=== PATIENT | male | born 1975 | race Caucasian/White ===

== ENCOUNTER 2018-10-10 10:34 | Emergency (ER) | payer SELFPAY ==
--- NOTE | 2018-10-10 10:38 | ER Report ---
History and Physical Time Seen By MD: 10:34 HPI/STEPH 43-year-old male who presents with multiple medical complaints. He presents with his sister as his attending ambulatory care. Patient recently moved from [place] several months ago and has not established medical care here in [place]. He states that he previously had some issues with his heart. He is unsure what this was. He is not currently on any medications for this. He states his last 6 months been having central chest pressure with some associated shortness of breath on exertion. This has slightly been worsening over the last several months. He is currently chest pain-free. He has had no fevers or chills. He does not recall ever having a stress test. Additionally, the patient complains of some intermittent black stools over the last several months. He denies any syncope, NSAID usage. He denies any hematemesis. Denies any illicit drug use. Occasional alcohol use. Finally, the patient also complains of a migraine headache which he states he gets on a daily basis; he states he has been worked up for these in the past including imaging and that the headache it is currently experiencing does not differ in any way to his migraines that he has had for the last year or so. He denies any fevers or chills, blurry vision, or neck stiffness. A complete review of systems was performed and is otherwise negative except as noted in the history of present illness. Remainder of the 14 system rev: Yes Allergies: Coded Allergies: Penicillins (Verified Allergy, Unknown, ANAPHYLAXIS, 10/10/18) nitroglycerin (Verified Allergy, Unknown, ANAPHYLAXIS, 10/10/18) STOPS MY HEART Home Meds No Active Prescriptions or Reported Meds Reviewed Nurses Notes: Yes Old Medical Records Reviewed: Yes Constitutional Vital Sign - Last 24 Hours 10/10/18 10/10/18 10/10/18 10/10/18 10:34 10:40 11:04 11:07 Temp 98.6 Pulse 89 90 88 Resp 14 B/P (MAP) 166/124 155/111 (126) Pulse Ox 92 94 O2 Delivery Room Air 10/10/18 10/10/18 10/10/18 10/10/18 11:12 11:30 11:42 12:00 Pulse 82 75 Resp 26 25 B/P (MAP) 143/105 (118) 147/118 (128) Pulse Ox 92 93 Physical Exam General Appearance: The patient is alert, has no immediate need for airway protection and no signs of toxicity. Eyes: Pupils equal and round no pallor or injection. ENT, Mouth: Mucous membranes are moist. Respiratory: There are no retractions, lungs are clear to auscultation. Cardiovascular: Regular rate and rhythm. Gastrointestinal: Abdomen is soft and non tender, no masses, bowel sounds normal. Rectal: No melena; brown stool Neurological: No focal deficits Skin: Warm and dry, no rashes. Musculoskeletal: No peripheral edema Medical Decision Making Data Points Result Diagram: 10/10/18 1045 10/10/18 1045 Laboratory Hematology Test 10/10/18 10:45 White Blood Count 8.3 k/uL (4.5-11.0) Red Blood Count 5.11 M/uL (4.00-5.60) Hemoglobin 16.7 g/dL (14.0-18.0) Hematocrit 47.5 % (42.0-52.0) Mean Corpuscular Volume 93.0 fL (80.0-96.0) Mean Corpuscular Hemoglobin 32.7 pg (26.0-33.0) Mean Corpuscular Hemoglobin Concent 35.1 g/dL (32.0-36.0) Red Cell Distribution Width 13.5 % (11.5-14.5) Platelet Count 193 K/uL (150-450) Mean Platelet Volume 8.5 fL (7.2-11.1) Neutrophils (%) (Auto) 70.5 % (39.4-72.5) Lymphocytes (%) (Auto) 22.6 % (17.6-49.6) Monocytes (%) (Auto) 4.5 % (4.1-12.4) Eosinophils (%) (Auto) 1.1 % (0.4-6.7) Basophils (%) (Auto) 1.3 % (0.3-1.4) Nucleated RBC Relative Count (auto) 0.0 /100WBC Neutrophils # (Auto) 5.8 K/uL (2.0-7.4) Lymphocytes # (Auto) 1.9 K/uL (1.3-3.6) Monocytes # (Auto) 0.4 K/uL (0.3-1.0) Eosinophils # (Auto) 0.1 K/uL (0.0-0.5) Basophils # (Auto) 0.1 K/uL (0.0-0.1) Nucleated RBC Absolute Count (auto) 0.00 K/uL Chemistry Test 10/10/18 10:45 Sodium Level 139 mmol/L (137-145) Potassium Level 3.9 mmol/L (3.5-5.0) Chloride Level 104 mmol/L (98-107) Carbon Dioxide Level 24 mmol/L (22-30) Blood Urea Nitrogen 13 mg/dl (9-21) Creatinine 1.20 mg/dl (0.66-1.25) Glomerular Filtration Rate Calc > 60.0 Random Glucose 95 mg/dl (75-110) Calcium Level 9.5 mg/dl (8.4-10.2) Total Bilirubin 1.0 mg/dl (0.2-1.3) Aspartate Amino Transf (AST/SGOT) 27 U/L (0-35) Alanine Aminotransferase (ALT/SGPT) 32 U/L (0-56) Alkaline Phosphatase 97 U/L (0-126) Troponin I < 0.012 ng/ml B-Type Natriuretic Peptide 13 pg/ml (0-100) Total Protein 7.8 g/dl (6.3-8.2) Albumin 4.9 g/dl (3.5-5.0) EKG/Imaging EKG Interpretation Normal sinus rhythm with a ventricular rate of 83. No significant ST or T-wave abnormalities. Mild right atrial enlargement by P wave criteria in lead 2. Monitor Interpretation: Normal Sinus Rhythm ED Course/Re-evaluation ED Course 43-year-old male who presents with several medical complaints including migraine headache, intermittent chest pain with associated shortness of breath, and black stools. Patient is medically stable although mildly hypertensive. Satting well on room air, afebrile. Physical exam is largely unremarkable. Differential includes but is not limited to stable angina, ACS, PE, upper GI bleed, migraine headache, intracranial pathology. With regards to the patient's intermittent chest pain and shortness of breath; EKG does not show any concerning signs for ischemia at this time and his troponin is negative. Patient's historical account is certainly concerning for potential coronary artery disease and unstable angina. Due to this, I have or dered a stress test that will be completed within 48 hours. I provided the patient with a number to establish cardiology follow-up as we were unable to get in contact with them today to prescheduled appointment. Additionally, we have scheduled a new primary care appointment for him for follow-up as well. We discussed that if he develops any worsening chest pain, chest pain that occurs at rest, nausea, vomiting, diaphoresis, or chest pain that radiates that he needs to return to the emergency department immediately for reevaluation. We will initiate medical management of presumed CAD including aspirin, antihypertensive, and a statin. With regards to the patient's migraine headache, this does appear to be the same as his previous headaches and he has already had imaging which was unremarkable. Do not feel that further head imaging is indicated at this time. Given the patient will be started on an aspirin, we will trial this to see if this improves his headaches. Patient is without neurological deficit and is afebrile. With regard to the patient's dark stools, he did not have melena on exam some "I have sent this for a formal stool occult test. Additionally, his hemoglobin is stable and therefore do not feel that he needs emergent upper lower scopes at this time. We'll have him follow up with his new primary care physician for potential elective endoscopy. Patient felt comfortable with discharge with strict return precautions. Decision to Disposition Date: Oct 10, 2018 Decision to Disposition Time: 12:33 Depart Departure Latest Vital Signs Vital Signs Date Time Temp Pulse Resp B/P (MAP) Pulse Ox O2 Delivery O2 Flow Rate FiO2 10/10/18 12:00 147/118 (128) 10/10/18 11:42 75 25 93 10/10/18 10:40 98.6 Room Air Impression: Primary Impression: Chest pain Additional Impressions: Headache Black stools Condition: Stable Disposition: HOME OR SELF-CARE Referrals: BALTA BARNARD MD Go to Appointment on at 1:15 CARDIOLOGY 5 Days New Scripts Lisinopril (LISINOPRIL) 5 Mg Tablet 5 MG PO QDAY for 30 Days, #30 TAB Prov: STACY BEARD MD 10/10/18 Atorvastatin Calcium (LIPITOR) 20 Mg Tablet 1 TAB PO QDAY for 30 Days, #30 TAB Prov: STACY BEARD MD 10/10/18 Aspirin (ASPIRIN) 81 Mg Tab.chew 81 MG PO QDAY for 30 Days, #30 TAB.CHEW Prov: STACY BEARD MD 10/10/18 Patient Instructions: Acute Headache (ED), Chest Pain (DC) Problem Qualifiers STACY BEARD MD Oct 10, 2018 10:38
[2018-10-10] MEDS ORDERED: ASPIRIN 325 MG ENTERIC COATED PO ONE (10:50)
[2018-10-10] MEDS ORDERED: ASPIRIN 81 MG CHEW PO ONE (11:00)
[2018-10-10 11:01] LABS: PLATELET COUNT, AUTOMATED 193 K/uL (150-450)
--- NOTE | 2018-10-10 11:32 | EKG ---
FACILITY: [facility] - [place] PATIENT NAME: MICHELLE LORD : [id number] MR: [id number] V: [id number] EXAM DATE: ORDERING PHYSICIAN: STACY BEARD TECHNOLOGIST: JOELLE Test Reason : DIZZY Blood Pressure : / mmHG Vent. Rate : 083 BPM Atrial Rate : 083 BPM P-R Int : 150 ms QRS Dur : 084 ms QT Int : 366 ms P-R-T Axes : 085 090 082 degrees QTc Int : 430 ms Normal sinus rhythm Right atrial enlargement Borderline ECG No previous ECGs available Confirmed by Russ Espinoza ([id number] on 10/10/2018 7:27:07 PM Referred By: KISHA Confirmed By:Russ Cuevas
--- NOTE | 2018-10-10 11:39 | RADIOLOGY IMAGING REPORT ---
FACILITY: [facility] PATIENT NAME: Hammad Delcid : 1975 MR: [id number] V: [id number] EXAM DATE: ORDERING PHYSICIAN: STACY BEARD TECHNOLOGIST: Location: [facility] [place] Patient: Hammad Delcid : 1975 Visit/Account:[id number] Date of Sevice: 10/10/2018 CHEST PA LAT INDICATION: chest pain, SOB COMPARISON: None available FINDINGS: Heart size within normal limits. There is no focal infiltrate or lobar consolidation. The lungs are hyperexpanded. Some is changes are noted usually on the right. There is no pneumothorax or pleural effusion. IMPRESSION: 1. COPD and emphysema, no acute process is identified Report Dictated By: Tom Damon at 10/10/2018 11:31 AM Report E-Signed By: Tom Damon at 10/10/2018 11:32 AM WSN:[id number]
[2018-10-10 12:30] VITALS: BP 152/113
[2018-10-10] MEDS ORDERED: ATOR20TA22 PO (12:40)
[2018-10-10] MEDS ORDERED: LISI5TAB25 PO (12:40)
[2018-10-10] MEDS ORDERED: ASPI81TA94 PO (12:40)
[2018-10-13] MEDS ORDERED: PRED20TA6 PO (14:31)
[2018-10-13] MEDS ORDERED: AZIT-17 PO (14:31)
[2018-10-13] MEDS ORDERED: CITA-145 PO (14:31)
== END 2018-10-10 12:51 | disposition home or self-care (01) ==
LOC: ER 10:41
DX: R07.9 Chest pain, unspecified (principal); R51 Headache
CPT/HCPCS: 71046; 82040; 82247; 82274; 82310; 82374; 82435; 82565; 82947; 83880; 84075; 84132; 84155; 84295; 84450; 84460; 84484; 84520; 85025; 93005; 99284

== ENCOUNTER → 2018-10-12 | Outpatient (CLI) | payer SELFPAY ==
[~2018-10-12] MED LIST: ASPI81TA94 PO; ATOR20TA22 PO; AZIT-17 PO; CITA-145 PO; LISI5TAB25 PO; PRED20TA6 PO
--- NOTE | 2018-10-12 15:29 | RT STRESS TEST REPORT ---
FACILITY: [facility] PATIENT NAME: MICHELLE LORD : [id number] MR: [id number] V: [id number] EXAM DATE: ORDERING PHYSICIAN: STACY BEARD TECHNOLOGIST: Sundeep Acquisition Time: 2018-10-12 14:20:03 Total Exercise Time: 00:04:28 Test Indications: CP, stable angina Medications: See chart. Protocol: BRUCE2 Max HR: 141 BPM 80% of Pred: 176 BPM Max BP: 178/096 mmHG Max Work Load: 6.3 METS Patient exercised just over four (4) minutes under Kike 2 Protocol. Test was stopped secondary to dy spnea and hypoxia. He reported a mild sharp sternal chest pain. A few premature ventricular complexes were noted during exercise. EKGs showed eric e upsloping ST depression inferolateral leads. His oxygen saturation dropped as low as 82% during the study. He was slow to recover as well. IMPRESSION: Very poor exercise tolerance with significant hypoxia and suspected intermediate probabi lity of ischemia. He should have further evaluation of cardiac and pulmonary function. Confirmed by YONG CASTRO ([id number]) on 10/12/2018 3:24:50 PM Referred By: Overread By: YONG CASTRO
== END ==
LOC: RESP 04:39
PROVIDERS: ATTEND Emergency Medicine
DX: R94.39 Abnormal result of other cardiovascular function study (principal)
CPT/HCPCS: 93017

== ENCOUNTER → 2018-10-13 | Outpatient (CLI) | payer SELFPAY | LOC: LAB 14:35 | PROVIDERS: ATTEND Internal Medicine | DX: J44.9 Chronic obstructive pulmonary disease, unspecified (principal); F41.9 Anxiety disorder, unspecified; R07.9 Chest pain, unspecified | CPT/HCPCS: 36415; 81001; 82465; 83718; 84443; 84478 ==